=== PATIENT | female | born 1950 | race American Indian/Alaskan Native ===

== ENCOUNTER 2017-08-31 08:50 | Inpatient (IN) | payer MEDICARE ==
--- NOTE | 2017-08-31 09:52 | ED PDOC ---
HPI: General Adult Time Seen by Provider: 08/31/17 09:05 Chief Complaint (Nursing): Back Pain Chief Complaint (Provider): Neck, lower back, leg pain History Per: Patient History/Exam Limitations: no limitations Onset/Duration Of Symptoms: Days (x2) Current Symptoms Are (Timing): Still Present Additional Complaint(s): 67 year old female, with a past medical history of HTN, presented to the ED complaining of worsening neck, lower back, and leg pain with onset of 2 days. Patient fell in may causing pain which has worsened since. Denies fever and vomiting. PCP: Kofi Li Past Medical History Reviewed: Historical Data, Nursing Documentation, Vital Signs Vital Signs: Last Vital Signs Temp 98.2 F 09/02/17 07:52 Pulse 60 09/02/17 07:52 Resp 18 09/02/17 07:52 BP 155/80 H 09/02/17 07:52 Pulse Ox 98 09/02/17 07:52 - Medical History PMH: HTN - Surgical History Surgical History: No Surg Hx - Family History Family History: States: Unknown Family Hx - Social History Current smoker - smoking cessation education provided: No Alcohol: None Drugs: Denies - Home Medications Home Medications: Ambulatory Orders Medication Instructions Recorded Losartan/Hydrochlorothiazide 1 tab PO DAILY 08/31/17 [Losartan-Hctz 50-12.5 mg Tab] Multivitamins [Hexavitamin] 1 tab PO DAILY 08/31/17 - Allergies Allergies/Adverse Reactions: Allergies Allergy/AdvReac Type Severity Reaction Status Date / Time oxaprozin [From Daypro] Allergy RASH Verified 08/31/17 09:22 Review of Systems ROS Statement: Except As Marked, All Systems Reviewed And Found Negative Constitutional: Negative for: Fever Gastrointestinal: Negative for: Vomiting Musculoskeletal: Positive for: Neck Pain, Back Pain, Leg Pain Physical Exam - Reviewed Nursing Documentation Reviewed: Yes Vital Signs Reviewed: Yes - Physical Exam Appears: Positive for: Non-toxic, No Acute Distress Head Exam: Positive for: ATRAUMATIC, NORMAL INSPECTION, NORMOCEPHALIC Skin: Positive for: Normal Color, Warm, Dry Eye Exam: Positive for: Normal appearance Neck: Positive for: Normal, Painless ROM Cardiovascular/Chest: Positive for: Regular Rate, Rhythm. Negative for: Murmur Respiratory: Positive for: Normal Breath Sounds. Negative for: Wheezing, Respiratory Distress Gastrointestinal/Abdominal: Positive for: Normal Exam, Soft. Negative for: Tenderness Back: Positive for: Normal Inspection. 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 Negative for: Motor/Sensory Deficits, Aphasia, Facial Droop - Laboratory Results Result Diagrams: 09/02/17 06:10 09/02/17 06:10 - ECG O2 Sat by Pulse Oximetry: 100 (RA) Pulse Ox Interpretation: Normal Medical Decision Making Medical Decision Making: Initial Impression: neck, lower back - acute on chronic pt has histoyr of cervical disc disease pt needs evaluation by spine surgeon by shon. Initial Plan: Type and screen stat ECG CMP CBC Partial thromboplastin Prothrombin time Chest X-ray Morphine 2mg IV 11:[address] Finn and agrees to admission. Dr Bartlett will see pt and evaluate pt as well. pt pain is controlled at this time. Scribe Attestation: Documented by Rashid Montenegro acting as a scribe for Shree Kaur MD. Provider Scribe Attestation: All medical record entries made by the Scribe were at my direction and personally dictated by me. I have reviewed the chart and agree that the record accurately reflects my personal performance of the history, physical exam, medical decision making, and the department course for this patient. I have also personally directed, reviewed, and agree with the discharge instructions and disposition. Disposition - Clinical Impression Clinical Impression: Acute back pain - Patient ED Disposition Is Patient to be Admitted: Yes - Disposition Disposition Time: 11:00 Condition: STABLE
[2017-08-31 10:28] LABS: BASO % 0.7 % (0.0-2.0); EOS # 0.2 K/uL (0.0-0.7); EOS % 2.8 % (0.0-4.0); HEMOGLOBIN 13.6 g/dL (12.0-16.0); LYMPH # 2.2 K/uL (1.0-4.3); MEAN CELL VOLUME 82.1 fl (81.0-99.0); MEAN CORPUSCULAR HEMOGLOBIN 27.4 pg (27.0-31.0); MEAN CORPUSCULAR HGB CONC 33.4 g/dL (33.0-37.0); MEAN PLATELET VOLUME 8.8 fl (7.2-11.7); MONO # 0.5 K/uL (0.0-0.8); NEUT % 57.5 % (50.0-75.0); NRBC % 0.2 % (0.0-0.0); RBC 4.94 Mil/uL (3.80-5.20); RED CELL DISTRIBUTION WIDTH 15.4 % (11.5-14.5)
[2017-08-31 10:43] LABS: PARTIAL THROMBOPLASTIN TIME 27.2 Seconds (25.6-37.1); PROTHROMBIN TIME 10.7 Seconds (9.8-13.1)
[2017-08-31 10:47] LABS: ALB/GLOB RATIO 1.1 (1.0-2.1); ALBUMIN 4.1 g/dL (3.5-5.0); ALT/SGPT 58 U/L (9-52); AST/SGOT 42 U/L (14-36); BLOOD UREA NITROGEN 10 mg/dl (7-17); CALCIUM 9.1 mg/dL (8.4-10.2); GFR AFRICAN-AMERICAN > 60; GFR NON-AFRICAN AMERICAN > 60
[2017-08-31] MEDS ORDERED: Sodium Chloride 0.9% 1,000 ML IV STA (11:00)
--- NOTE | 2017-08-31 11:32 | CP.PCM.HP ---
History of Present Illness - History of Present Illness History of Present Illness: 67 yo ,f, PMhx/o HTN, chronic back pain, chronic neck pain s/p fall 05/2017 presents c/o persistent and worsening neck pain since 05/23 after a fall. Patient states she missed a step back in May when going out from house to work and landed to the front hitting his head, right arm. 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 Faxon is partially alleviated with flexeril, naproxen, advil. She also c/o sciatalgia with radiation to left leg with chronic pain 2-3 times/week with worsening of pain for the last 2 days. . She denies new focal weakness, headache , dizziness, chest pain, SOB, n,v,d abd pain. Patient reports that conservative management is not helping for pain and agree to have surgical intervention. PMD: Dr Finn Allergies: Daypro Meds: Losartan/HCTZ 50/12.5 Surgeries: denies SHx: Deneis ETOH, rect drugs, cig Present on Admission - Present on Admission Any Indicators Present on Admission: No History of DVT/PE: No History of Uncontrolled Diabetes: No Urinary Catheter: No Decubitus Ulcer Present: No Review of Systems - Review of Systems All systems: reviewed and no additional remarkable complaints except - Musculoskeletal Additional comments: neck pain back pain left leg pain - Neurological Additional comments: right hand numbness Past Patient History - Past Social History Alcohol: None Drugs: Denies - CARDIAC Hx Hypertension: Yes - PSYCHIATRIC Hx Substance Use: No - SURGICAL HISTORY Hx Surgeries: No - ANESTHESIA Hx Anesthesia: No Meds Allergies/Adverse Reactions: Allergies Allergy/AdvReac Type Severity Reaction Status Date / Time oxaprozin [From Daypro] Allergy RASH Verified 08/31/17 09:22 Physical Exam - Constitutional Appears: Non-toxic, No Acute Distress - Head Exam Head Exam: ATRAUMATIC, NORMOCEPHALIC - Eye Exam Eye Exam: Normal appearance - ENT Exam ENT Exam: Mucous Membranes Moist - Neck Exam Neck exam: Positive for: Normal Inspection Additional comments: TD to palpation over cervical spine C-6-C7 limited ROM due to pain for rotation to the left and anterior flexion - Respiratory Exam Respiratory Exam: Clear to Auscultation Bilateral. absent: Rales, Rhonchi, Wheezes - Cardiovascular Exam Cardiovascular Exam: REGULAR RHYTHM, +S1, +S2, Systolic Murmur Additional comments: 2/6 not radiated aortic area - GI/Abdominal Exam GI & Abdominal Exam: Normal Bowel Sounds, Soft. absent: Guarding, Rebound, Tenderness - Extremities Exam Extremities exam: Positive for: normal inspection. Negative for: pedal edema - Back Exam Additional comments: straight leg raise test + for left side. - Neurological Exam Neurological exam: Alert, Oriented x3 - Psychiatric Exam Psychiatric exam: Normal Affect, Normal Mood - Skin Skin Exam: Normal Color Results - Vital Signs Recent Vital Signs: Last Vital Signs Temp 97.7 F 08/31/17 11:13 Pulse 58 L 08/31/17 11:13 Resp 20 08/31/17 11:13 BP 142/46 L 08/31/17 11:13 Pulse Ox 98 08/31/17 11:13 - Labs Result Diagrams: 08/31/17 10:18 08/31/17 10:18 Labs: Laboratory Results - last 24 hr 08/31/17 08/31/17 08/31/17 10:18 10:18 10:18 WBC 7.0 RBC 4.94 Hgb 13.6 Hct 40.5 MCV 82.1 MCH 27.4 MCHC 33.4 RDW 15.4 H Plt Count 203 MPV 8.8 Neut % (Auto) 57.5 Lymph % (Auto) 32.0 [place] % (Auto) 7.0 Eos % (Auto) 2.8 Baso % (Auto) 0.7 Neut # (Auto) 4.0 Lymph # (Auto) 2.2 [place] # (Auto) 0.5 Eos # (Auto) 0.2 Baso # (Auto) 0.0 PT 10.7 INR 1.0 APTT 27.2 Sodium 140 Potassium 4.1 Chloride 102 Carbon Dioxide 25 Anion Gap 17 BUN 10 Creatinine 0.6 L Est GFR ( Amer) > 60 Est GFR (Non-Af Amer) > 60 Random Glucose 103 Calcium 9.1 Total Bilirubin 0.5 AST 42 H ALT 58 H Alkaline Phosphatase 83 Total Protein 7.8 Albumin 4.1 Globulin 3.7 Albumin/Globulin Ratio 1.1 Blood Type Antibody Screen BBK History Checked 08/31/17 10:18 WBC RBC Hgb Hct MCV MCH MCHC RDW Plt Count MPV Neut % (Auto) Lymph % (Auto) [place] % (Auto) Eos % (Auto) Baso % (Auto) Neut # (Auto) Lymph # (Auto) [place] # (Auto) Eos # (Auto) Baso # (Auto) PT INR APTT Sodium Potassium Chloride Carbon Dioxide Anion Gap BUN Creatinine Est GFR ( Amer) Est GFR (Non-Af Amer) Random Glucose Calcium Total Bilirubin AST ALT Alkaline Phosphatase Total Protein Albumin Globulin Albumin/Globulin Ratio Blood Type B POSITIVE Antibody Screen Negative BBK History Checked No verified bt Assessment & Plan (1) Intractable low back pain Status: Acute Comment: - chronic. -s/p fall. -Ortho consult suggested (2) Neck pain Status: Acute Comment: chronic. -s/p fall. -Ortho consult suggested (3) Hypertension Status: Acute Comment: -chronic (4) DVT prophylaxis Status: Acute Comment: -SCD
--- NOTE | 2017-08-31 16:35 | CP.PCM.CON ---
History of Present Illness - History of Present Illness History of Present Illness: Patient is a 67 y/o RHD female with PMH of HTN who presents with severe neck pain. She states that the pain started after a mechanical fall down one concrete step outside of her home on 05/19/17. She was treated at [facility] for her acute injuries. Following the injury, she began to experience progressively worsening neck pain over the past 3 months. The pain is throbbing in quality and intermittent. The pain sometimes radiates down the RUE to her R hand. It is also associated with R hand weakness, numbness and tingling. The pain is worsened with movement of her head, especially when turning to the left. She notes that she has tried and failed conservative management with NSAID's, muscle relaxants and physical therapy. She denies CP/ SOB/N/V/D/fever/GILL/dysuria/melena. Dr. Bartlett was consulted for neurosurgical evaluation. Review of Systems - Review of Systems All systems: reviewed and no additional remarkable complaints except Review of Systems: as per HPI Past Patient History - Past Medical History & Family History Past Medical History?: Yes Past Family History: Reviewed and not pertinent - Past Social History Smoking Status: Never Smoked Alcohol: None Drugs: Denies - CARDIAC Hx Cardiac Disorders: Yes Hx Hypertension: Yes - PULMONARY Hx Respiratory Disorders: No - NEUROLOGICAL Hx Neurological Disorder: Yes Other/Comment: sciatica pain - HEENT Hx HEENT Problems: No - RENAL Hx Chronic Kidney Disease: No - ENDOCRINE/METABOLIC Hx Endocrine Disorders: No - HEMATOLOGICAL/ONCOLOGICAL Hx Blood Disorders: No - INTEGUMENTARY Hx Dermatological Problems: No - MUSCULOSKELETAL/RHEUMATOLOGICAL Hx Musculoskeletal Disorders: Yes Hx Falls: Yes (may 2017) - GASTROINTESTINAL Hx Gastrointestinal Disorders: No - GENITOURINARY/GYNECOLOGICAL Hx Genitourinary Disorders: No - PSYCHIATRIC Hx Psychophysiologic Disorder: No Hx Substance Use: No - SURGICAL HISTORY Hx Surgeries: No Hx Vascular Access Device: No - ANESTHESIA Hx Anesthesia: No Meds Allergies/Adverse Reactions: Allergies Allergy/AdvReac Type Severity Reaction Status Date / Time oxaprozin [From Daypro] Allergy RASH Verified 08/31/17 09:22 - Medications Medications: Current Medications Acetaminophen (Tylenol 325mg Tab) 650 mg PO Q6 PRN PRN Reason: Pain, Mild (1-3) Acetaminophen (Tylenol 325mg Tab) 650 mg PO Q6 PRN PRN Reason: Fever >100.4 F HCTZ/Losartan Potassium (Hyzaar 12.5 Mg-50 Mg) 1 tab PO DAILY [facility]ICCO Sodium Chloride (Sodium Chloride 0.9%) 1,000 mls @ 75 mls/hr IV .[id number] STA Stop: 09/01/17 00:19 Last Admin: 08/31/17 11:42 Dose: 75 mls/hr Morphine Sulfate (Morphine) 2 mg IVP Q4 PRN PRN Reason: Pain, severe (8-10) Multivitamins/Minerals (Therapeutic-M Tab) 1 tab PO DAILY [facility] Ondansetron HCl (Zofran Inj) 4 mg IVP Q6 PRN PRN Reason: Nausea/Vomiting Physical Exam - Constitutional Appears: Well, No Acute Distress - Head Exam Head Exam: ATRAUMATIC, NORMOCEPHALIC - Eye Exam Eye Exam: EOMI, Normal appearance, PERRL - ENT Exam ENT Exam: Mucous Membranes Moist, Normal Exam - Neck Exam Additional comments: -Cervical midline tenderness, right paraspinal tenderness -Limited head rotation to left and extension 2nd to pain -sensation intact MN/UN/RN -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 -radial pulses intact - Respiratory Exam Respiratory Exam: Clear to Auscultation Bilateral, NORMAL BREATHING PATTERN - Cardiovascular Exam Cardiovascular Exam: REGULAR RHYTHM - GI/Abdominal Exam GI & Abdominal Exam: Normal Bowel Sounds, Soft - Extremities Exam Extremities exam: Positive for: full ROM - Neurological Exam Neurological exam: Alert, CN II-XII Intact, Oriented x3, Reflexes Normal - Psychiatric Exam Psychiatric exam: Normal Affect, Normal Mood - Skin Skin Exam: Normal Color, Warm Results - Vital Signs Recent Vital Signs: Last Vital Signs Temp 98.2 F 08/31/17 16:12 Pulse 55 L 08/31/17 16:12 Resp 20 08/31/17 16:12 BP 135/68 08/31/17 16:12 Pulse Ox 98 08/31/17 16:12 - Labs Result Diagrams: 09/01/17 05:40 09/01/17 05:40 Labs: Laboratory Results - last 24 hr 08/31/17 08/31/17 08/31/17 10:18 10:18 10:18 WBC 7.0 RBC 4.94 Hgb 13.6 Hct 40.5 MCV 82.1 MCH 27.4 MCHC 33.4 RDW 15.4 H Plt Count 203 MPV 8.8 Neut % (Auto) 57.5 Lymph % (Auto) 32.0 [place] % (Auto) 7.0 Eos % (Auto) 2.8 Baso % (Auto) 0.7 Neut # (Auto) 4.0 Lymph # (Auto) 2.2 [place] # (Auto) 0.5 Eos # (Auto) 0.2 Baso # (Auto) 0.0 PT 10.7 INR 1.0 APTT 27.2 Sodium 140 Potassium 4.1 Chloride 102 Carbon Dioxide 25 Anion Gap 17 BUN 10 Creatinine 0.6 L Est GFR ( Amer) > 60 Est GFR (Non-Af Amer) > 60 Random Glucose 103 Calcium 9.1 Total Bilirubin 0.5 AST 42 H ALT 58 H Alkaline Phosphatase 83 Total Protein 7.8 Albumin 4.1 Globulin 3.7 Albumin/Globulin Ratio 1.1 Blood Type Blood Type Confirm Antibody Screen BBK History Checked 08/31/17 08/31/17 10:18 12:40 WBC RBC Hgb Hct MCV MCH MCHC RDW Plt Count MPV Neut % (Auto) Lymph % (Auto) [place] % (Auto) Eos % (Auto) Baso % (Auto) Neut # (Auto) Lymph # (Auto) [place] # (Auto) Eos # (Auto) Baso # (Auto) PT INR APTT Sodium Potassium Chloride Carbon Dioxide Anion Gap BUN Creatinine Est GFR ( Amer) Est GFR (Non-Af Amer) Random Glucose Calcium Total Bilirubin AST ALT Alkaline Phosphatase Total Protein Albumin Globulin Albumin/Globulin Ratio Blood Type B POSITIVE Blood Type Confirm B POSITIVE Antibody Screen Negative BBK History Checked No verified bt Assessment & Plan (1) Neck pain Assessment and Plan: Patient is a 67 y/o female with C5-6 and C6-7 spondylosis -Dr. Barltett proposes anterior cervical discectomy and fusion at levels C5-6 and C6 -7 -NPO pMN -Risk and benefits of the procedure were explained in detail to the patient. She expresses understanding and agrees to proceed with above procedure. -above D/w Dr. Bartlett in agreement Status: Acute
--- NOTE | 2017-08-31 20:04 | CT ---
EXAM: CT Cervical Spine Without Intravenous Contrast EXAM DATE/TIME: 08/31/2017 5:31 PM CLINICAL HISTORY: 67 years old, female; Pain; Neck pain; Patient HX: Pat going for neck surgery tomorrow; Additional info: Back pain TECHNIQUE: Axial computed tomography images of the cervical spine without intravenous contrast. All CT scans at this facility use one or more dose reduction techniques, viz.: automated exposure control; ma/kV adjustment per patient size (including targeted exams where dose is matched to indication; i.e. head); or iterative reconstruction technique. Coronal and sagittal reformatted images were created and reviewed. COMPARISON: There are no prior studies for comparison. FINDINGS: Vertebrae: There is straightening of the cervical lordosis. There is no prevertebral soft tissue swelling. There are no fractures. There is multilevel degenerative change. There is narrowing of the predental space. There is disc space narrowing at multiple levels greatest C5/C6, C6/C7 and C7/T1. There are degenerative posterior and postero-lateral spurs greatest at C6-C7. There is mild encroachment on the bony canal. There is degenerative facet disease greatest C6-C7 Facet joints align anatomically. Spinous processes align in the expected fashion. Bone mineralization is normal. Discs/spinal canal/neural foramina: See above. Soft tissues: unremarkable Thyroid: Thyroid is unremarkable Lung apices: Lung apices are clear. IMPRESSION: Degenerative change, no fracture
[2017-09-01 06:35] LABS: BASO % 0.4 % (0.0-2.0); EOS # 0.2 K/uL (0.0-0.7); EOS % 3.2 % (0.0-4.0); HEMOGLOBIN 13.3 g/dL (12.0-16.0); LYMPH # 3.3 K/uL (1.0-4.3); LYMPH % 43.9 % (20.0-40.0); MEAN CELL VOLUME 82.6 fl (81.0-99.0); MEAN CORPUSCULAR HEMOGLOBIN 27.2 pg (27.0-31.0); MEAN PLATELET VOLUME 8.5 fl (7.2-11.7); MONO # 0.4 K/uL (0.0-0.8); NEUT # 3.5 K/uL (1.8-7.0); NEUT % 46.5 % (50.0-75.0); NRBC % 0.1 % (0.0-0.0); RBC 4.89 Mil/uL (3.80-5.20); RED CELL DISTRIBUTION WIDTH 15.1 % (11.5-14.5); WHITE BLOOD COUNT 7.4 K/uL (4.8-10.8)
[2017-09-01 06:48] LABS: ALB/GLOB RATIO 1.1 (1.0-2.1); ALBUMIN 3.7 g/dL (3.5-5.0); ALT/SGPT 44 U/L (9-52); AST/SGOT 29 U/L (14-36); BLOOD UREA NITROGEN 9 mg/dl (7-17); CALCIUM 8.9 mg/dL (8.4-10.2); GFR AFRICAN-AMERICAN > 60; GFR NON-AFRICAN AMERICAN > 60
[2017-09-01] MEDS ORDERED: Succinylcholine 200 mg/10 ml Inj IV ONE (07:10)
[2017-09-01] MEDS ORDERED: Propofol 10 mg/ml Inj (20 ML) ONE (07:10)
[2017-09-01] MEDS ORDERED: Absorbable Gelatin Sponge Size 100 ONE (07:16)
[2017-09-01] MEDS ORDERED: ceFAZolin IV 2 gm in Dextrose 2 GM/50 ML BAG IVPB ONE (07:16)
[2017-09-01] MEDS ORDERED: Phenylephrine 10 mg/ml Inj ONE (07:16)
[2017-09-01] MEDS ORDERED: Thrombin Topical 5,000 Int Units Spray Kit ONE ×2 (07:17→07:40)
[2017-09-01] MEDS ORDERED: Neostigmine 1:1000 (1 mg/ml) Inj ONE (07:18)
[2017-09-01] MEDS ORDERED: Etomidate 20 mg/10ml Inj IV ONE (07:28)
[2017-09-01] MEDS ORDERED: Lactated Ringer's 1,000 ML IV ONE (07:40)
[2017-09-01] MEDS ORDERED: Rocuronium 10 mg/ml (5 ml) ONE (07:53)
[2017-09-01] MEDS ORDERED: ePHEDrine 50 mg/ml Inj ONE (08:11)
[2017-09-01] MEDS ORDERED: Esmolol 100 mg/10ml Inj IV ONE (08:23)
[2017-09-01] MEDS ORDERED: Lactated Ringer's 500 ML IV ONE (08:24)
[2017-09-01] MEDS ORDERED: Sodium Chloride 0.9% 500 ML IV ONE ×2 (08:24→09:20)
[2017-09-01] MEDS ORDERED: Dexamethasone 4 mg/1 ml ONE (08:58)
[2017-09-01] MEDS ORDERED: HEMOSTATIC MATRIX 10 ML DIS.NEEDLE TOP ONE (08:59)
--- NOTE | 2017-09-01 09:20 | CP.PCM.PN ---
Subjective - Date & Time of Evaluation Date of Evaluation: 09/01/17 Time of Evaluation: 07:00 - Subjective Subjective: Patient seen and examined bedside. patient reports mild neck pain. denies chest pain, SOB. no overnight events. patietn for surgery today in the morning Objective - Vital Signs/Intake and Output Vital Signs (last 24 hours): Temp Pulse Resp BP Pulse Ox 98.3 F 60 18 164/84 H 97 09/01/17 07:14 09/01/17 07:14 09/01/17 07:14 09/01/17 07:14 09/01/17 07:14 - Medications Medications: Current Medications Acetaminophen (Tylenol 325mg Tab) 650 mg PO Q6 PRN PRN Reason: Pain, Mild (1-3) Acetaminophen (Tylenol 325mg Tab) 650 mg PO Q6 PRN PRN Reason: Fever >100.4 F HCTZ/Losartan Potassium (Hyzaar 12.5 Mg-50 Mg) 1 tab PO DAILY [facility] Morphine Sulfate (Morphine) 2 mg IVP Q4 PRN PRN Reason: Pain, severe (8-10) Last Admin: 08/31/17 20:02 Dose: 2 mg Multivitamins/Minerals (Therapeutic-M Tab) 1 tab PO DAILY [facility] Ondansetron HCl (Zofran Inj) 4 mg IVP Q6 PRN PRN Reason: Nausea/Vomiting - Labs Labs: 09/01/17 05:40 09/01/17 05:40 PT 10.7 Seconds (9.8-13.1) 08/31/17 10:18 INR 1.0 (0.9-1.2) 08/31/17 10:18 APTT 27.2 Seconds (25.6-37.1) 08/31/17 10:18 - Constitutional Appears: Non-toxic, No Acute Distress - Head Exam Head Exam: ATRAUMATIC, NORMOCEPHALIC - Eye Exam Eye Exam: Normal appearance - ENT Exam ENT Exam: Mucous Membranes Moist - Neck Exam Neck Exam: Normal Inspection, Tenderness Additional comments: to left lateral rotation - Respiratory Exam Respiratory Exam: Clear to Ausculation Bilateral - Cardiovascular Exam Cardiovascular Exam: REGULAR RHYTHM, +S1, +S2 - GI/Abdominal Exam GI & Abdominal Exam: Soft, Normal Bowel Sounds. absent: Tenderness - Extremities Exam Extremities Exam: Normal Inspection. absent: Calf Tenderness - Neurological Exam Neurological Exam: Alert, Awake, Oriented x3 - Psychiatric Exam Psychiatric exam: Normal Affect, Normal Mood - Skin Skin Exam: Intact Assessment and Plan (1) Intractable low back pain Status: Acute (2) Neck pain Assessment & Plan: Intractable neck pain -Dr. Bartlett proposes anterior cervical discectomy and fusion at levels C5-6 and C6 -7 Status: Acute (3) Hypertension Status: Acute (4) DVT prophylaxis Assessment & Plan: -scd Status: Acute
[2017-09-01] MEDS: HYDROmorphone 0.5 mg/0.5 ml ISec IVP PRN ×3 (09:25→10:00)
[2017-09-01] MEDS ORDERED: HYDROmorphone 0.5 mg/0.5 ml ISec ONE (09:25)
[2017-09-01] MEDS: HCTZ/Losartan 12.5/50 Tab PO SCH (10:23)
[2017-09-01] MEDS: Multivitamin With Minerals Tab PO SCH (10:23)
[2017-09-01] MEDS ORDERED: Lactated Ringer's 1,000 ML IV SCH (10:45)
--- NOTE | 2017-09-01 11:15 | RAD ---
PROCEDURE: Fluoroscopy in excess of 1 hr. HISTORY: ACDF COMPARISON: None TECHNIQUE: Total fluoroscopic time (continuous mode) utilized during the procedure 11.9 seconds. Dose symmetry 1.45. FINDINGS: Submitted images from the current procedure: 2.0 IMPRESSION: Total exam DLP: (mGy) 1.45
--- NOTE | 2017-09-01 11:25 | PCM.SURG1 ---
Surgeon's Initial Post Op Note - Surgeon's Notes Surgeon: Simon Bartlett MD Sales Marketing Manager: Froy Rice PA-C Type of Anesthesia: General Endo Anesthesia Administered By: Andria MCKEON Pre-Operative Diagnosis: Cervical Spondylosis Operative Findings: Cervical spondylosis at C5-6 and C6-7 Post-Operative Diagnosis: as above Operation Performed: Anterior cervical discectomy and fusion at C5-6 and C6-7 Specimen/Specimens Removed: None Estimated Blood Loss: EBL {In ML}: 20 Blood Products Given: N/A Drains Used: Suresh Samuels (x1) Post-Op Condition: Good Date of Surgery/Procedure: 09/01/17 Time of Surgery/Procedure: 08:02
[2017-09-01] MEDS: Benzocaine/Menthol (Cepacol) Lozenge PO PRN (15:11)
[2017-09-01] MEDS: ceFAZolin 1 GM in Sodium Chloride 0.9% 100 ML IVPB SCH (16:33)
--- NOTE | 2017-09-01 17:28 | CARD ---
APPROVED REPORT EKG Measurement Heart [id number] <Conclusion> Sinus bradycardia Minimal voltage criteria for LVH, may be normal variant Abnormal ECG
--- NOTE | 2017-09-01 23:46 | OP ---
PROCEDURE DATE: 09/01/2017 PREOPERATIVE DIAGNOSIS: Cervical spondylosis with myelopathy. POSTOPERATIVE DIAGNOSIS: Cervical spondylosis with myelopathy. PROCEDURE: Partial vertebrectomy of C5, C6, C7, diskectomy of C5-6, C6-7, interbody fusion of C5-6, C6-7 using PEEK and bone, and plating and instrumentation from C5 to C7 using spinal elements plate. Fluoroscopy has been used. Microscope has been used. SURGEON: Simon Bartlett MD. PEGGER: Froy DUYEN who stayed throughout the case from the beginning to the end and helped me to perform the surgery. DESCRIPTION OF PROCEDURE: The patient was brought to the operating room, anesthetized with general endotracheal anesthesia, and placed in a supine position. Head was placed on a doughnut. Care was taken to protect all the pressure points. Right side of the neck was thoroughly prepped and draped in same sterile manner after marking the skin incisions for cervical diskectomy and vertebrectomy. After prepping and draping the area, horizontal skin incision in the neck region has been made. Bleeding skins have been controlled with bipolar biofuels technology manager. After using a Bovie biofuels technology manager, platysma has been cut. Dissection has been carried out between trachea and esophagus medially and sternomastoid carried out laterally. Prevertebral fascia has been cauterized and cut. Identification of levels has been done with the help of fluoroscopy. Longus colli has been detached, attachment of vertebral bodies of C5, 6, and 7. Dyonics retractor has been applied. After that, identification of levels has been done with the help of fluoroscopy and under microscopic examination, rest of the operation has been carried out. PARTIAL VERTEBRECTOMY OF C5, 6, and 7 AND DISKECTOMY OF C5-6 and C6-7: By using a high-speed drill, the vertebral bodies of C6-7 have been drilled. Drilling was continued posteriorly. Partial vertebrectomy including removal of the cartilages and placing half of the vertebral bodies done. Intermittently, diskectomy has been performed. There was a large osteophyte noted, that has been drilled away. Posterior longitudinal ligament has been opened. Dura has been decompressed from side to side. Similarly at C5-6 partial vertebrectomy including removal of the cartilage and placed on half of the vertebral body and diskectomy has been performed. Osteophytes have been removed. Posterior longitudinal ligament has been opened. Dura has been decompressed from side to side. INTERBODY FUSION OF C5-6, C6-7 USING A PEEK AND BONE: Two pieces of PEEK implant have been brought in and filled with demineralized bone. There have been gently tapped into space creating a partial vertebrectomy of C5-6, C6-7. Position had been confirmed to be good. PLATING AND INSTRUMENTATION C5-C7 USING SPINAL ELEMENTS PLATE: Spinal element plate has been placed at vertebral bodies of C5-C7 by using 12-mm screw, it has been secured under fluoroscopic-guided control. After that, hemostasis was best achieved. All this has been done with the help of fluoroscopy. After that, hemostasis was best achieved. Suresh drain was placed in the wound and brought out through a separate stab skin incision. Platysma closed with 3-0 Vicryl. Skin has been intradermal 3 Vicryl stitches. The patient tolerated the procedure. After the procedure, mobilized to the recovery room in stabilized condition. Simon Bartlett MD
[2017-09-02] MEDS: ceFAZolin 1 GM in Sodium Chloride 0.9% 100 ML IVPB SCH (00:05)
[2017-09-02] MEDS: Oxycodone/Acetaminophen 5/325 mg Tab PO PRN ×2 (00:06→09:56)
[2017-09-02 06:42] LABS: HEMOGLOBIN 12.3 g/dL (12.0-16.0); MEAN CELL VOLUME 82.1 fl (81.0-99.0); MEAN CORPUSCULAR HEMOGLOBIN 27.1 pg (27.0-31.0); RBC 4.55 Mil/uL (3.80-5.20); WHITE BLOOD COUNT 12.3 K/uL (4.8-10.8)
[2017-09-02 06:49] LABS: BLOOD UREA NITROGEN 6 mg/dl (7-17); CALCIUM 8.7 mg/dL (8.4-10.2); GFR AFRICAN-AMERICAN > 60; GFR NON-AFRICAN AMERICAN > 60
[2017-09-02 07:53] VITALS: RESP 18
--- NOTE | 2017-09-02 08:43 | CP.PCM.PN ---
Objective - Vital Signs/Intake and Output Vital Signs (last 24 hours): Temp Pulse Resp BP Pulse Ox 98.2 F 60 18 155/80 H 98 09/02/17 07:52 09/02/17 07:52 09/02/17 07:52 09/02/17 07:52 09/02/17 07:52 Intake and Output: 09/02/17 09/02/17 06:59 18:59 Intake Total 1400 Output Total 10 Balance 1390 - Medications Medications: Current Medications Acetaminophen (Tylenol 325mg Tab) 650 mg PO Q6 PRN PRN Reason: Pain, Mild (1-3) Last Admin: 09/01/17 21:47 Dose: 650 mg Acetaminophen (Tylenol 325mg Tab) 650 mg PO Q6 PRN PRN Reason: Fever >100.4 F Acetaminophen (Tylenol 325mg Tab) 650 mg PO Q4 PRN PRN Reason: Fever 101 degrees fahrenheit Benzocaine/Menthol (Cepacol Sore Throat) 1 ale PO Q2 PRN PRN Reason: Sore Throat Last Admin: 09/01/17 15:11 Dose: 1 ale Docusate Sodium (Colace) 100 mg PO BID [facility] Last Admin: 09/01/17 16:34 Dose: 100 mg HCTZ/Losartan Potassium (Hyzaar 12.5 Mg-50 Mg) 1 tab PO DAILY [facility] Last Admin: 09/01/17 10:23 Dose: Not Given Lactated Ringer's (Lactated Ringer's) 1,000 mls @ 100 mls/hr IV .Q10H [facility] Last Admin: 09/01/17 22:00 Dose: 100 mls/hr Morphine Sulfate (Morphine) 2 mg IVP Q4 PRN PRN Reason: Pain, severe (8-10) Last Admin: 09/01/17 15:09 Dose: 2 mg Morphine Sulfate (Morphine) 2 mg IVP Q4 PRN PRN Reason: Pain, severe (8-10) Multivitamins/Minerals (Therapeutic-M Tab) 1 tab PO DAILY [facility] Last Admin: 09/01/17 10:23 Dose: Not Given Ondansetron HCl (Zofran Inj) 4 mg IVP Q6 PRN PRN Reason: Nausea/Vomiting Ondansetron HCl (Zofran Inj) 4 mg IVP ONCE PRN PRN Reason: Nausea/Vomiting Oxycodone/Acetaminophen (Percocet 5/325 Mg Tab) 2 tab PO Q4 PRN PRN Reason: Pain, severe (8-10) Stop: 09/04/17 10:41 Last Admin: 09/02/17 00:06 Dose: 2 tab - Labs Labs: 09/02/17 06:10 09/02/17 06:10 PT 10.7 Seconds (9.8-13.1) 08/31/17 10:18 INR 1.0 (0.9-1.2) 08/31/17 10:18 APTT 27.2 Seconds (25.6-37.1) 08/31/17 10:18 Assessment and Plan (1) Intractable low back pain Status: Acute (2) Neck pain Status: Acute (3) Hypertension Status: Acute (4) DVT prophylaxis Status: Acute
--- NOTE | 2017-09-02 09:05 | CP.PCM.PN ---
Subjective - Date & Time of Evaluation Date of Evaluation: 09/02/17 Time of Evaluation: 07:45 - Subjective Subjective: Patient seen and examined at bedside comfortable. Pain is 4-5/10 this AM, controlled with pain meds. Tolerated liquid diet this AM. No acute events overnight. Objective - Vital Signs/Intake and Output Vital Signs (last 24 hours): Temp Pulse Resp BP Pulse Ox 98.2 F 60 18 155/80 H 98 09/02/17 07:52 09/02/17 07:52 09/02/17 07:52 09/02/17 07:52 09/02/17 07:52 Intake and Output: 09/02/17 09/02/17 06:59 18:59 Intake Total 1400 Output Total 10 Balance 1390 - Medications Medications: Current Medications Acetaminophen (Tylenol 325mg Tab) 650 mg PO Q6 PRN PRN Reason: Pain, Mild (1-3) Last Admin: 09/01/17 21:47 Dose: 650 mg Acetaminophen (Tylenol 325mg Tab) 650 mg PO Q6 PRN PRN Reason: Fever >100.4 F Acetaminophen (Tylenol 325mg Tab) 650 mg PO Q4 PRN PRN Reason: Fever 101 degrees fahrenheit Benzocaine/Menthol (Cepacol Sore Throat) 1 ale PO Q2 PRN PRN Reason: Sore Throat Last Admin: 09/01/17 15:11 Dose: 1 ale Docusate Sodium (Colace) 100 mg PO BID [facility] Last Admin: 09/01/17 16:34 Dose: 100 mg HCTZ/Losartan Potassium (Hyzaar 12.5 Mg-50 Mg) 1 tab PO DAILY [facility] Last Admin: 09/01/17 10:23 Dose: Not Given Lactated Ringer's (Lactated Ringer's) 1,000 mls @ 100 mls/hr IV .Q10H [facility] Last Admin: 09/01/17 22:00 Dose: 100 mls/hr Morphine Sulfate (Morphine) 2 mg IVP Q4 PRN PRN Reason: Pain, severe (8-10) Last Admin: 09/01/17 15:09 Dose: 2 mg Morphine Sulfate (Morphine) 2 mg IVP Q4 PRN PRN Reason: Pain, severe (8-10) Multivitamins/Minerals (Therapeutic-M Tab) 1 tab PO DAILY [facility] Last Admin: 09/01/17 10:23 Dose: Not Given Ondansetron HCl (Zofran Inj) 4 mg IVP Q6 PRN PRN Reason: Nausea/Vomiting Ondansetron HCl (Zofran Inj) 4 mg IVP ONCE PRN PRN Reason: Nausea/Vomiting Oxycodone/Acetaminophen (Percocet 5/325 Mg Tab) 2 tab PO Q4 PRN PRN Reason: Pain, severe (8-10) Stop: 09/04/17 10:41 Last Admin: 09/02/17 00:06 Dose: 2 tab - Labs Labs: 09/02/17 06:10 09/02/17 06:10 PT 10.7 Seconds (9.8-13.1) 08/31/17 10:18 INR 1.0 (0.9-1.2) 08/31/17 10:18 APTT 27.2 Seconds (25.6-37.1) 08/31/17 10:18 - Neck Exam Additional comments: Dressings CDI, RAKEL drain intact with minimal bloody drainage (25cc in 24hrs), minimal swelling sensation intact MN/UN/RN motor intact, 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 Bartlett in agreement Status: Acute
[2017-09-02] MEDS: HCTZ/Losartan 12.5/50 Tab PO SCH (09:58)
[2017-09-02] MEDS: Multivitamin With Minerals Tab PO SCH (09:58)
[2017-09-02 10:57] VITALS: O2SAT 100
[2017-09-02 12:09] VITALS: BP 125/73; PULSE 63; TEMP 98.3
[2017-09-02] MEDS: Benzocaine/Menthol (Cepacol) Lozenge PO PRN (13:20)
--- NOTE | 2017-09-02 16:01 | CP.PCM.DIS ---
Provider - Provider Date of Admission: 08/31/17 10:24 Attending physician: Kofi Finn MD Consults: Ortho Dr Bartlett Time Spent in preparation of Discharge (in minutes): 20 Diagnosis - Discharge Diagnosis (1) Intractable low back pain Status: Chronic (2) Hypertension Status: Chronic Hospital Course - Lab Results Lab Results: Most Recent Lab Values WBC 12.3 K/uL (4.8-10.8) H D 09/02/17 06:10 RBC 4.55 Mil/uL (3.80-5.20) 09/02/17 06:10 Hgb 12.3 g/dL (12.0-16.0) 09/02/17 06:10 Hct 37.4 % (34.0-47.0) 09/02/17 06:10 MCV 82.1 fl (81.0-99.0) 09/02/17 06:10 MCH 27.1 pg (27.0-31.0) 09/02/17 06:10 MCHC 33.0 g/dL (33.0-37.0) 09/02/17 06:10 RDW 15.0 % (11.5-14.5) H 09/02/17 06:10 Plt Count 188 K/uL (130-400) 09/02/17 06:10 MPV 8.5 fl (7.2-11.7) 09/01/17 05:40 Neut % (Auto) 46.5 % (50.0-75.0) L 09/01/17 05:40 Lymph % (Auto) 43.9 % (20.0-40.0) H 09/01/17 05:40 [place] % (Auto) 6.0 % (0.0-10.0) 09/01/17 05:40 Eos % (Auto) 3.2 % (0.0-4.0) 09/01/17 05:40 Baso % (Auto) 0.4 % (0.0-2.0) 09/01/17 05:40 Neut # (Auto) 3.5 K/uL (1.8-7.0) 09/01/17 05:40 Lymph # (Auto) 3.3 K/uL (1.0-4.3) 09/01/17 05:40 [place] # (Auto) 0.4 K/uL (0.0-0.8) 09/01/17 05:40 Eos # (Auto) 0.2 K/uL (0.0-0.7) 09/01/17 05:40 Baso # (Auto) 0.0 K/uL (0.0-0.2) 09/01/17 05:40 PT 10.7 Seconds (9.8-13.1) 08/31/17 10:18 INR 1.0 (0.9-1.2) 08/31/17 10:18 APTT 27.2 Seconds (25.6-37.1) 08/31/17 10:18 Sodium 140 mmol/l (132-148) 09/02/17 06:10 Potassium 3.7 MMOL/L (3.6-5.0) 09/02/17 06:10 Chloride 104 mmol/L (98-107) 09/02/17 06:10 Carbon Dioxide 30 mmol/L (22-30) 09/02/17 06:10 Anion Gap 10 (10-20) 09/02/17 06:10 BUN 6 mg/dl (7-17) L 09/02/17 06:10 Creatinine 0.5 mg/dl (0.7-1.2) L 09/02/17 06:10 Est GFR ( Amer) > 60 09/02/17 06:10 Est GFR (Non-Af Amer) > 60 09/02/17 06:10 Random Glucose 124 mg/dL (65-105) H 09/02/17 06:10 Calcium 8.7 mg/dL (8.4-10.2) 09/02/17 06:10 Total Bilirubin 0.6 mg/dl (0.2-1.3) 09/01/17 05:40 AST 29 U/L (14-36) 09/01/17 05:40 ALT 44 U/L (9-52) 09/01/17 05:40 Alkaline Phosphatase 66 U/L (38-126) 09/01/17 05:40 Total Protein 7.2 G/DL (6.3-8.2) 09/01/17 05:40 Albumin 3.7 g/dL (3.5-5.0) 09/01/17 05:40 Globulin 3.5 gm/dL (2.2-3.9) 09/01/17 05:40 Albumin/Globulin Ratio 1.1 (1.0-2.1) 09/01/17 05:40 Blood Type B POSITIVE 08/31/17 10:18 Blood Type Confirm B POSITIVE 08/31/17 12:40 Antibody Screen Negative 08/31/17 10:18 BBK History Checked No verified bt 08/31/17 10:18 - Hospital Course Hospital Course: 67 yo ,f, PMhx/o HTN, chronic back pain, chronic neck pain s/p fall 05/2017 admitted for intractable neck pain and back pain s/p mechanical fall 05/23. Patient evaluated by ortho and agree to have surgery. Patient today. POD# 1 s/p C5-7 ACDF doing well, hemodynamically stable, drainage serosanguineous. Patient cleared to be discharged late in the afternoon. Patient seen by Dr Finn.medically cleared Diagnosis on discharge 1) Neck pain - POD# 1 s/p C5-7 ACDF doing well Discharge Exam - Head Exam Head Exam: ATRAUMATIC, NORMAL INSPECTION, NORMOCEPHALIC - Eye Exam Eye Exam: Normal appearance - ENT Exam ENT Exam: Mucous Membranes Moist - Neck Exam Additional comments: dressing C/D/I - Respiratory Exam Respiratory Exam: Clear to PA & Lateral, NORMAL BREATHING PATTERN - Cardiovascular Exam Cardiovascular Exam: REGULAR RHYTHM, +S1, +S2 - GI/Abdominal Exam GI & Abdominal Exam: Normal Bowel Sounds, Soft. absent: Tenderness - Extremities Exam Extremities exam: normal inspection - Neurological Exam Neurological exam: Alert, Oriented x3 - Psychiatric Exam Psychiatric exam: Normal Affect, Normal Mood - Skin Skin Exam: Normal Color Discharge Plan - Discharge Medications Prescriptions: oxyCODONE/Acetaminophen [Percocet 5/325 mg Tab] 1 tab PO Q6 #15 tab - Follow Up Plan Condition: STABLE Disposition: HOME/ ROUTINE Instructions: High Blood Pressure (DC), Low Back Pain (DC), Anterior Cervical Fusion (DC) Additional Instructions: follow up with primary MD 1 week Referrals: Simon Bartlett MD [Staff Provider] - Kofi Finn MD [Family Provider] -
== END 2017-09-02 15:02 | disposition home or self-care (01) | DRG 473 ==
LOC: H.ER 08:50 → H.ERHOLD 10:24 → H.MEDSURG1 11:58 → H.TEL 09-01 12:25
PROVIDERS: ADMIT Family Medicine; ATTEND Family Medicine
PROC: 0RB30ZZ Excision of Cervical Vertebral Disc, Open Approach (ICD-10-PCS; principal; 2017-08-31)
PROC: 0RG20A0 Fusion of 2 or more Cervical Vertebral Joints with Interbody Fusion Device, Anterior Approach, Anterior Column, Open Approach (ICD-10-PCS; 2017-08-31)
DX: M47.12 Other spondylosis with myelopathy, cervical region (principal); I10 Essential (primary) hypertension; G89.29 Other chronic pain; Z91.81 History of falling; M54.5 Low back pain; R20.2 Paresthesia of skin